=== PATIENT | female | born 1955 | race African-American/Black ===

== ENCOUNTER 2020-11-25 21:11 | Emergency (ER) | payer OTHER ==
[~2020-11-25] VITALS: Ht 170.2 cm; Wt 106.0 kg
[2020-11-25 21:26] VITALS: BP 171/90
[2020-11-25] MEDS ORDERED: ACETAMINOPHEN 325MG TABLET PO ONE (22:30)
[2020-11-25 23:00] LABS: CLARITY URINE CLEAR (CLEAR); COLOR URINE YELLOW (YELLOW); KETONES URINE NEGATIVE (NEGATIVE); LEUKOCYTE ESTERASE URINE 1+ (NEGATIVE); NITRITE URINE NEGATIVE (NEGATIVE); OCCULT BLOOD URINE NEGATIVE (NEGATIVE); PH URINE 6.5 (4.5-8.0); PROTEIN URINE NEGATIVE (NEGATIVE); SPECIFIC GRAVITY URINE 1.015 (1.005-1.030); UROBILINOGEN URINE 0.2 E.U./dL (0.2-1.0)
[2020-11-25 23:12] LABS: BASOPHILS % 0.9 % (0.0-2.0); EOSINOPHILS % 2.5 % (0.0-5.0); HEMATOCRIT. 36.2 % (36.0-48.0); HEMOGLOBIN. 12.6 g/dL (12.0-16.0); LYMPHOCYTES % 22.6 % (20.0-50.0); MEAN CORPUSCULAR HEMOGLOBIN 31.8 pg (28.0-32.0); MEAN CORPUSCULAR VOLUME 91.7 fL (81.0-99.0); MEAN PLATELET VOLUME 7.4 fl (7.4-10.4); MONOCYTES % 7.8 % (2.0-8.0); NEUTROPHILS % 66.2 % (40.0-76.0); PLATELET 184 x1000/uL (130-400); RED BLOOD CELL COUNT 3.95 mill/uL (4.2-5.4); RED CELL DISTRIBUTION WIDTH 14.3 % (11.6-14.6)
[2020-11-25 23:18] LABS: CHLORIDE 106 mEq/L (98-107)
[2020-11-26] MEDS ORDERED: NITR-87 MT (00:21)
[2020-11-26] MEDS ORDERED: IBUP-2028 MT (00:21)
== END 2020-11-26 00:39 | disposition home or self-care (01) ==
LOC: ER 21:11
DX: N39.0 Urinary tract infection, site not specified (principal); Z88.2 Allergy status to sulfonamides; Z88.9 Allergy status to unspecified drugs, medicaments and biological substances
CPT/HCPCS: 36415; 80053; 81003; 85025; 87077; 87186; 99283